=== PATIENT | male | born 1990 | race Caucasian/White ===

== ENCOUNTER 2025-03-26 17:02 | Emergency (ER) | payer BC | END 2025-03-26 19:03 | disposition home or self-care (01) | LOC: MW.ED 17:02 | DX: J18.9 Pneumonia, unspecified organism (principal); Z75.3 Unavailability and inaccessibility of health-care facilities; Z79.899 Other long term (current) drug therapy | CPT/HCPCS: 71046; 71046-26; 87428-QW; 99283 ==